=== PATIENT | male | born 1970 | race Two or more races ===

== ENCOUNTER 2018-08-20 16:19 | Emergency (ER) | payer SELFPAY ==
[~2018-08-20] VITALS: Ht 162.6 cm; Wt 86.2 kg
[2018-08-20 16:29] VITALS: BP 125/80
[2018-08-20] MEDS ORDERED: LIDOCAINE 0.5%-EPI 1:200,000 50 ML VIAL ONE (16:51)
--- NOTE | 2018-08-20 17:23 | NUR ---
SUTURING DONE BY RONNI HOWARD.
== END 2018-08-20 18:18 | disposition home or self-care (01) ==
LOC: ER 16:20
DX: S01.512A Laceration without foreign body of oral cavity, initial encounter (principal); Z60.2 Problems related to living alone; W26.8XXA Contact with other sharp object(s), not elsewhere classified, initial encounter; Y93.89 Activity, other specified; Y92.89 Other specified places as the place of occurrence of the external cause; Y99.8 Other external cause status
CPT/HCPCS: A6402; J3490